=== PATIENT | female | born 1980 | race Caucasian/White ===

== ENCOUNTER → 2016-09-01 | Outpatient (CLI) | payer OTHER ==
[~2016-09-01] MED LIST: ANAPROX DS550 MG PO; ANTIBIOTIC O500 U/GM TP; CARAFATE1 G1 PO; CYCLOBENZAPRINE10 MG PO; CYCLOBENZAPRINE5 M3 PO; DONNATAL1 TAB PO; HYDROCODONE BIT1 T11 PO; MAALOX1 TAB PO; MEDROL DOSEPAK4 MG PO; NAPROSYN500 MG PO; NKHM; NORCO 5-325 TA1 EACH PO; PEPCID20 MG PO; PREDNISONE10 MG PO; TRAMADOL HCL50 MG PO; VICODIN 5/500 505 MG PO; ZOFRAN ODT4 MG SL; ZOVIRAX400 MG PO
== END | disposition home or self-care (01) ==
LOC: CARD 07-23 07:30
DX: Z01.810 Encounter for preprocedural cardiovascular examination (principal); E66.01 Morbid (severe) obesity due to excess calories

== ENCOUNTER → 2016-09-12 | Outpatient (CLI) | payer OTHER ==
[2016-09-12 10:00] LABS: BASO % 0.4 % (0.0-1.0); EOS # 0.1 10*3/uL (0.0-0.4); HEMATOCRIT 42.9 % (37.0-47.0); HEMOGLOBIN 14.3 g/dl (12.0-16.0); LYMPH % 35.9 % (27.0-41.0); MEAN CELL VOLUME 86.7 fl (81.0-99.0); MEAN CORPUSCULAR HGB 28.9 pg (27.0-31.0); MEAN CORPUSCULAR HGB CONC 33.3 g/dl (33.0-37.0); MEAN PLATELET VOLUME 10.2 fl (9.6-12.3); MONO # 0.3 10*3/uL (0.1-1.0); NEUT # 3.1 10*3/uL (2.3-7.9); NEUT % 56.5 % (47.0-73.0); PLATELET COUNT AUTOMATED 229 10*3/uL (130-400); RED BLOOD COUNT 4.95 10*6/uL (4.10-5.10); RED CELL DISTRI WIDTH 12.9 % (0-14.5); WHITE BLOOD COUNT 5.4 10*3/uL (4.8-10.8)
[2016-09-12 10:27] LABS: ALBUMIN 3.6 gm/dl (3.1-4.5); ALKALINE PHOSPHATASE 57 U/L (45-117); BILIRUBIN, TOTAL 0.4 mg/dl (0.2-1.0); BUN 11 mg/dl (7-24); CARBON DIOXIDE 27 mmol/L (21-32); CHLORIDE 109 mmol/L (98-107); EST GLOM FILT AFRICAN AMERICAN > 60 ml/min; GLUCOSE 98 mg/dL (65-99); IRON 51 ug/dL (50-170); IRON SATURATION 16 %; POTASSIUM 3.7 mmol/L (3.5-5.1); SGOT/AST 16 IU/L (3-35); SGPT/ALT 30 U/L (12-78); SODIUM 142 mmol/L (136-145); TOTAL PROTEIN 6.8 gm/dL (6.4-8.2); UIBC 264 ug/dL (110-365)
[2016-09-12 10:33] LABS: FERRITIN 24.3 ng/mL (10.0-291.0); FOLIC ACID 9.05 ng/mL (>5.38); VITAMIN D, 25-HYDROXY 15.2 ng/mL (30-100)
== END | disposition home or self-care (01) ==
LOC: LAB 09:44
PROVIDERS: Surgery
DX: E66.01 Morbid (severe) obesity due to excess calories (principal)

== ENCOUNTER 2017-12-15 10:04 | Emergency (ER) | payer SELFPAY ==
[~2017-12-15] VITALS: Wt 90.7 kg
[2017-12-15] MEDS ORDERED: ESCITALOPRAM OX20 MG PO (10:10)
[2017-12-15] MEDS ORDERED: HYDROXYZINE PAM25 M1 PO (10:10)
[2017-12-15] MEDS ORDERED: MEDROL DOSEPAK4 MG PO (10:31)
[2017-12-15] MEDS ORDERED: CYCLOBENZAPRINE10 MG PO (10:31)
== END 2017-12-15 10:51 | disposition home or self-care (01) ==
LOC: ED 10:04
DX: M54.42 Lumbago with sciatica, left side (principal); F10.10 Alcohol abuse, uncomplicated; Z79.899 Other long term (current) drug therapy

== ENCOUNTER 2018-02-20 07:46 | Emergency (ER) | payer BC ==
[~2018-02-20 07:46] MED LIST changes: +ESCITALOPRAM OX20 MG PO; +HYDROXYZINE PAM25 M1 PO
[2018-02-20 09:06] LABS: BASO % 0.4 % (0.0-1.0); EOS # 0.1 10*3/uL (0.0-0.4); EOS % 1.8 % (1.0-4.0); HEMATOCRIT 39.9 % (37.0-47.0); HEMOGLOBIN 13.4 g/dl (12.0-16.0); LYMPH # 1.9 10*3/uL (1.3-4.4); LYMPH % 33.7 % (27.0-41.0); MEAN CELL VOLUME 87.5 fl (81.0-99.0); MEAN CORPUSCULAR HGB 29.4 pg (27.0-31.0); MEAN CORPUSCULAR HGB CONC 33.6 g/dl (33.0-37.0); MEAN PLATELET VOLUME 9.4 fl (9.6-12.3); MONO # 0.3 10*3/uL (0.1-1.0); MONO % 4.6 % (3.0-9.0); NEUT # 3.3 10*3/uL (2.3-7.9); NEUT % 59.1 % (47.0-73.0); PLATELET COUNT AUTOMATED 221 10*3/uL (130-400); RED BLOOD COUNT 4.56 10*6/uL (4.10-5.10); RED CELL DISTRI WIDTH 12.8 % (0-14.5); WHITE BLOOD COUNT 5.5 10*3/uL (4.8-10.8)
[2018-02-20 09:20] LABS: ALBUMIN 3.7 gm/dl (3.1-4.5); ALKALINE PHOSPHATASE 58 U/L (45-117); BUN 12 mg/dl (7-24); CHLORIDE 111 mmol/L (98-107); CREATININE 0.88 mg/dL (0.55-1.02); POTASSIUM 4.3 mmol/L (3.5-5.1); SGOT/AST 17 IU/L (3-35); SGPT/ALT 24 U/L (12-78); SODIUM 143 mmol/L (136-145)
[2018-02-20] MEDS ORDERED: ZOVIRAX800 MG PO (11:32)
[2018-02-20] MEDS ORDERED: Motrin,Rufen800 MG PO (11:33)
== END 2018-02-20 12:05 | disposition home or self-care (01) ==
LOC: ED 07:46
PROVIDERS: Emergency Medicine
DX: B27.90 Infectious mononucleosis, unspecified without complication (principal); Z79.899 Other long term (current) drug therapy

== ENCOUNTER 2018-09-12 16:21 | Emergency (ER) | payer BC ==
[~2018-09-12] VITALS: Ht 165.1 cm; Wt 115.7 kg
[~2018-09-12 16:21] MED LIST changes: +Motrin,Rufen800 MG PO; +ZOVIRAX800 MG PO
[2018-09-12] MEDS ORDERED: FLUOXETINE HYDR20 M1 PO (16:32)
[2018-09-12] MEDS ORDERED: IBUPROFEN600 MG PO (16:57)
[2018-09-12] MEDS ORDERED: DOXYCYCLINE100 M3 PO (16:57)
== END 2018-09-12 17:04 | disposition home or self-care (01) ==
LOC: ED 16:21
DX: Q18.1 Preauricular sinus and cyst (principal); Z79.899 Other long term (current) drug therapy

== ENCOUNTER 2019-01-13 18:34 | Emergency (ER) | payer BC ==
[~2019-01-13] VITALS: Ht 162.5 cm; Wt 83.9 kg
[~2019-01-13 18:34] MED LIST changes: +DOXYCYCLINE100 M3 PO; +FLUOXETINE HYDR20 M1 PO; +IBUPROFEN600 MG PO
== END 2019-01-13 20:15 | disposition home or self-care (01) ==
LOC: ED 18:34
DX: R60.0 Localized edema (principal); G89.29 Other chronic pain; Z79.2 Long term (current) use of antibiotics; Z79.899 Other long term (current) drug therapy

== ENCOUNTER 2024-04-08 21:21 | Emergency (ER) | payer OTHER ==
[~2024-04-08] VITALS: Ht 162.5 cm; Wt 81.6 kg
[2024-04-08] MEDS ORDERED: AMOX-CLAV 875-1 EACH PO (22:03)
[2024-04-08] MEDS ORDERED: Amoxicillin/Clavulanate Pota 875 MG TAB PO ONE (22:05)
[2024-04-08] MEDS ORDERED: Acetaminophen/Hydrocodone 5 MG/325 MG TABLET PO ONE (22:05)
== END 2024-04-08 22:31 | disposition home or self-care (01) ==
LOC: ED 21:21
DX: H66.92 Otitis media, unspecified, left ear (principal); H92.02 Otalgia, left ear; R09.89 Other specified symptoms and signs involving the circulatory and respiratory systems